=== PATIENT | male | born 1965 | race Caucasian/White ===

== ENCOUNTER 2019-03-26 17:55 | Emergency (ER) | payer OTHER ==
[~2019-03-26] VITALS: Ht 180.3 cm; Wt 97.5 kg
[2019-03-26 18:23] LABS: HEMATOCRIT 47.7 % (42.0-52.0); HEMOGLOBIN 15.9 gm/dL (14.0-18.0); MCH 30.6 pg (26.0-34.0); MCHC 33.4 g/dL (28.0-37.0); MCV 91.6 fL (80.0-100.0); MPV 8.1 fl. (7.2-11.1); NUCLEATED RBCS 0 /100WBC; PLATELET COUNT* 247 thou/uL (150-400); RBC 5.21 mil/uL (4.50-6.00); RDW-CV 13.5 % (10.5-14.5); WBC 9.4 thou/uL (4.0-11.0)
[2019-03-26 18:31] LABS: ANION GAP 8 mmol/L (7-16); BUN 15 mg/dL (7-18); CALCIUM 8.2 mg/dL (8.5-10.1); CHLORIDE 106 mmol/L (98-107); CO2 27 mmol/L (21-32); CREATININE 1.1 mg/dL (0.6-1.3); GLUCOSE 146 mg/dL (70-99); POTASSIUM 3.7 mmol/L (3.5-5.1); SODIUM 141 mmol/L (136-145)
[2019-03-26 18:32] LABS: APTT 29.9 Seconds (25.0-31.3); PROTIME 10.3 Seconds (9.20-11.50)
[2019-03-26 18:42] LABS: ALBUMIN 3.5 g/dL (3.4-5.0); ALKALINE PHOSPHATASE 123 U/L (46-116); NT-PRO BRAIN NAT PEPTIDE 40 pg/mL (<300); SALICYLATE < 2.8 mg/dL (2.8-20.0); SGOT 24 U/L (15-37); SGPT 44 U/L (30-65); TOTAL BILIRUBIN 0.4 mg/dL (<0.1-1.0); TROPONIN-I LEVEL <0.06 ng/mL (<0.06)
[2019-03-26 18:43] LABS: ACETAMINOPHEN < 2 ug/mL (10-30); ALCOHOL < 10 mg/dL (<10)
[2019-03-26 18:45] LABS: ABSOLUTE BASOPHILS 0.1 thou/uL (0.0-0.2); ABSOLUTE LYMPHOCYTES 3.6 thou/uL (0.8-5.3); ABSOLUTE MONOCYTES 0.4 thou/uL (0.0-1.2); ABSOLUTE NEUTROPHILS 4.3 thou/uL (1.6-8.1); ATYPICAL LYMPHS 3 %; PLATELET ESTIMATE ADEQUATE
[2019-03-26 20:25] LABS: URINE BILIRUBIN NEGATIVE (Negative); URINE BLOOD NEGATIVE (Negative); URINE CLARITY CLEAR; URINE COLOR YELLOW; URINE GLUCOSE-RANDOM NEGATIVE (Negative); URINE KETONES NEGATIVE (Negative); URINE LEUKOCYTES-REFLEX NEGATIVE (Negative); URINE NITRITE-REFLEX NEGATIVE (Negative); URINE PROTEIN NEGATIVE (Negative); URINE SPECIFIC GRAVITY >= 1.030 (1.005-1.030); URINE UROBILINOGEN 0.2 E.U./dl (0.2-1.0)
[2019-03-26 20:32] LABS: AMP/METHAMP POSITIVE (Negative); BARBITURATES Negative (Negative); BENZODIAZEPINES Negative (Negative); COCAINE Negative (Negative); METHADONE Negative (Negative); OPIATES Negative (Negative); PCP Negative (Negative); THC Negative (Negative)
[2019-03-26 21:35] VITALS: BP 125/69
--- NOTE | 2019-03-28 07:34 | EKG ---
[place] [address] ELECTROCARDIOGRAM REPORT Name: ERIKA BUTCHER JR [id number] Admission: 03/26/19 Attend Phys: Discharge: 03/26/19 Date of : 69 Report #: [id number] THIS REPORT FOR: //name// [facility] ED Test Date: 2019-03-26 Test Time: 18:10:14 Pat Name: ERIKA BUTCHER Department: Room: Gender: M Gas [employer] Rep[employer]r: : 1965 Requested By: Leroy Sanchez Order Number: [id number] MD: Carlos Clark Measurements Intervals [place] Rate: 81 P: 13 KS: 126 QRS: 29 QRSD: 96 T: 60 QT: 361 QTc: 419 Interpretive Statements Sinus rhythm RSR' in V1 or V2, right VCD or RVH Baseline wander in lead(s) V3 No previous ECG available for comparison Electronically Signed On 03-28-2019 7:33:58 CDT by Carlos Clark [email or web address] <ELECTRONICALLY SIGNED> By: Carlos Clark MD, [facility] 03/28/19 0733 D: [id number] Carlos Clark MD, FACC /EPI
== END 2019-03-26 21:35 | disposition home or self-care (01) ==
LOC: M.ERS 17:55
PROVIDERS: Family Medicine
DX: F15.10 Other stimulant abuse, uncomplicated (principal); Z88.5 Allergy status to narcotic agent